=== PATIENT | female | born 1975 | race American Indian/Alaskan Native ===

== ENCOUNTER 2019-06-28 08:35 | Observation (INO) | payer MEDICAID, OTHER ==
[2019-06-24 10:53] LABS: Basophils % (Auto) 0.9 % (0.0-1.8); Eosinophils # (Auto) 0.2 K/mm3 (0.0-0.4); Eosinophils % (Auto) 3.2 % (0.0-4.3); Hematocrit 27.8 % (30.3-42.9); Lymphocytes # (Auto) 2.1 K/mm3 (1.2-5.4); Mean Corpuscular HGB Conc 32 % (30-34); Mean Corpuscular Volume 70 fl (79-97); Monocytes # (Auto) 0.5 K/mm3 (0.0-0.8); Monocytes % (Auto) 8.5 % (0.0-7.3); Platelet Count 539 K/mm3 (140-440); Red Blood Count 3.95 M/mm3 (3.65-5.03); Red Cell Distribution Width 17.4 % (13.2-15.2)
--- NOTE | 2019-06-24 14:46 | Anesthesia Consultation ---
Anesthesia Consult and Med Hx Date of service: 06/28/19 - Airway Anesthetic Teeth Evaluation: Good ROM Head & Neck: Adequate Mental/Hyoid Distance: Adequate Mallampati Class: Class II Intubation Access Assessment: Possibly Difficult (reports occasional difficulty with TMJ; good mouth opening on exam) - Pulmonary Exam CTA: Yes - Cardiac Exam Cardiac Exam: RRR - Pre-Operative Health Status ASA Pre-Surgery Classification: ASA2 Proposed Anesthetic Plan: General Nerve Block: TAP - Pulmonary Hx Smoking: Yes Hx Respiratory Symptoms: No - Cardiovascular System Hx Hypertension: No Hx Heart Attack/AMI: No Hx Angina: Yes (hx right sided chest pain with incomplete cardiology work up) Hx Percutaneous Transluminal Coronary Angioplasty (PTCA): No Hx Cardia Arrhythmia: No Hx Heart Murmur: Yes (As -resolved) - Central Nervous System CVA: No Hx Psychiatric Problems: Yes (anxiety) - Gastrointestinal Hx Gastroesophageal Reflux Disease: No - Endocrine Hx Renal Disease: No Hx Liver Disease: No Hx Insulin Dependent Diabetes: No Hx Non-Insulin Dependent Diabetes: No Hx Thyroid Disease: No - Hematic Hx Anemia: Yes - Other Systems Hx Obesity: Yes - Additional Comments Anesthesia Medical History Comments: PMH smoking, anemia, and fibroids scheduled for myomectomy. Reports history of intermittent chest pain for the last 2 yrs, most recently 2 wks ago. She was previously seen in the ED at [facility] 2yrs ago where acute SD was ruled out. She saw cardiology as outpatient and stress test or TTE was recommended but she never got the procedure done. She has not seen the hotel services sales representative or PCP regarding this issue since. EKG today is NSR without evidence of acute SD and she denies chest pain. Patient instructed to make appt with cardiology for further evaluation of chest pain and that this evaluation must be completed prior to planned surgery. She and family verbalized understanding.
[2019-06-28] MEDS ORDERED: LACTATED RINGERS 1,000 ML IV SCH (09:00)
[2019-06-28] MEDS ORDERED: ceFAZolin/Water 2 GM/20 ML 2 GM/20 ML SYRINGE IV NR (09:00)
--- NOTE | 2019-06-28 09:01 | History and Physical Report ---
History of Present Illness Date of examination: 06/28/19 Chief complaint: Symptomatic uterine fibroids History of present illness: Pt is a 43yo BF LMP 06/20/19 presents for surgical evaluation and treatment of uterine fibroids. She complains of pelvic pain and heavy vaginal bleeding. Pelvic u/s showed an enlarged uterus with several fibroids, and endometrial biopsy was benign. She desires future fertility and thus is scheduled for an Abdominal myomectomy. Past History Past Medical History: heart disease Past Surgical History: BODY HANGER/uterine surgery (Laparoscopic surgery) BODY HANGER History: fibroids Social history: no significant social history, single Medications and Allergies Allergies Allergy/AdvReac Type Severity Reaction Status Date / Time No Known Allergies Allergy Unverified 06/23/19 12:46 Home Medications Medication Instructions Recorded Confirmed Last Taken Type Cyclobenzaprine [Flexeril] 10 mg PO TID 06/28/19 06/28/19 06/28/19 06:00 History FLUoxetine HCL [PROzac] 40 mg PO QDAY 06/28/19 06/28/19 06/27/19 08:00 History Ibuprofen [Motrin] 800 mg PO Q8HR PRN 06/28/19 06/28/19 06/21/19 08:00 History traZODone [Desyrel] 50 mg PO QHS 06/28/19 06/28/19 06/27/19 21:00 History Review of Systems All systems: negative - Vital Signs Vital signs: Vital Signs Temp Pulse Resp BP Pulse Ox 99.4 F 94 H 20 152/90 100 06/24/19 10:25 06/24/19 10:25 06/24/19 10:25 06/24/19 10:25 06/24/19 10:25 Temp Pulse Resp BP Pulse Ox 99.4 F 94 H 20 152/90 100 06/24/19 10:25 06/24/19 10:25 06/24/19 10:25 06/24/19 10:25 06/24/19 10:25 - Physical Exam Breasts: Positive: deferred Cardiovascular: Regular rate Lungs: Positive: Clear to auscultation Abdomen: Positive: normal appearance Genitourinary (Female): Positive: normal external genitalia Uterus: Positive: enlarged Extremities: Positive: normal Results Result Diagrams: 06/24/19 10:30 All other labs normal. Ultrasound: report reviewed Assessment and Plan - Patient Problems (1) Menorrhagia with regular cycle Onset Date: 06/28/19 Current Visit: Yes Status: Acute Plan to address problem: A: Menorrhagia Chronic blood loss anemia Uterine fibroids P: Admit for an Abdominal myomectomy Cell saver (2) Chronic blood loss anemia Onset Date: 06/28/19 Current Visit: Yes Status: Acute (3) Fibroids, intramural Onset Date: 06/28/19 Current Visit: Yes Status: Acute (4) Fibroids, submucosal Onset Date: 06/28/19 Current Visit: Yes Status: Acute (5) Fibroids, subserous Onset Date: 06/28/19 Current Visit: Yes Status: Acute
[2019-06-28] MEDS ORDERED: MIDAZOLAM 2 MG/2 ML INJ IV NR (09:10)
[2019-06-28] MEDS ORDERED: PROPOFOL 200 MG/20 ML VIAL IV ONE (09:15)
[2019-06-28] MEDS ORDERED: ROCURONIUM 50 MG/5 ML INJ IV ONE (09:15)
[2019-06-28] MEDS ORDERED: LIDOCAINE MPF (2%) 20 MG/1 ML VIAL 5 ML ONE (09:15)
[2019-06-28] MEDS ORDERED: fentaNYL 100 MCG/2 ML INJ ONE ×2 (09:15→09:31)
[2019-06-28] MEDS ORDERED: BUPIVACAINE-EPINEPHRINE/PF 0.5%-1:200,000 (30 ML) VIAL INFILTRATI ONE (09:21)
[2019-06-28] MEDS ORDERED: BUPIVACAINE-EPINEPHRINE/PF 0.5%-1:200,000 (10 ML) VIAL INFILTRATI ONE (09:22)
[2019-06-28] MEDS ORDERED: dexAMETHasone 4 MG/ML VIAL ONE (09:22)
[2019-06-28] MEDS ORDERED: SODIUM CHLORIDE 0.9% 100 ML ONE (09:30)
[2019-06-28] MEDS ORDERED: VASOPRESSIN 20 UNIT/1 ML INJ ONE (09:30)
[2019-06-28] MEDS ORDERED: CITRIC ACID-SOD CITRATE 500 ML IV ONE (09:34)
[2019-06-28] MEDS ORDERED: METOCLOPRAMIDE 10 MG/2 ML INJ ONE (09:43)
[2019-06-28] MEDS ORDERED: dexAMETHasone 20 MG/5 ML VIAL ONE (09:43)
[2019-06-28] MEDS ORDERED: KETOROLAC 30 MG/1 ML INJ ONE (09:43)
[2019-06-28] MEDS ORDERED: HYDROmorphone 1 MG/1 ML INJ ONE (09:43)
[2019-06-28] MEDS ORDERED: ONDANSETRON 4 MG/2 ML INJ ONE (09:43)
[2019-06-28] MEDS ORDERED: GLYCOPYRROLATE 0.4 MG/2 ML INJ ONE ×2 (11:00→11:09)
[2019-06-28] MEDS ORDERED: NEOSTIGMINE 10MG/10 ML INJ MDV ONE (11:00)
[2019-06-28] MEDS ORDERED: LACTATED RINGERS 1,000 ML ONE (11:06)
[2019-06-28] MEDS ORDERED: VASOPRESSIN 20 UNIT/1 ML INJ IM ONE (11:15)
[2019-06-28] MEDS ORDERED: SODIUM CHLORIDE 0.9% IRR 1,500 ML BOTTLE IR ONE (11:16)
[2019-06-28] MEDS ORDERED: CITRIC ACID-SOD CITRATE SOLN 500 ML IV SOLN IV ONE (11:16)
[2019-06-28] MEDS ORDERED: SODIUM CHLORIDE 0.9% 100 ML IVPB IV ONE (11:16)
[2019-06-28] MEDS ORDERED: ONDANSETRON 4 MG/2 ML INJ IV PRN ×2 (11:35→11:55)
[2019-06-28] MEDS ORDERED: oxyCODONE /ACETAMINOPHEN 5-325MG TAB PO PRN (11:35)
[2019-06-28] MEDS ORDERED: ACETAMINOPHEN 325 MG TAB PO PRN (11:35)
--- NOTE | 2019-06-28 11:35 | Operative Report ---
Operative Report Operative Report: Date of procedure: 06/29/2019 Pre-operative diagnosis: 1. Symptomatic uterine fibroids 2. Menorrhagia 3. Anemia Post-operative diagnosis: Same Procedure name(s): 1. Abdominal myomectomy Surgeon: Arjun Adrian MD General Magistrate: Cristine Diaz CSA Anesthesia: TYE block followed by Gen. endotracheal intubation EBL: 70 mL's Findings: A 10 -12 week size multimyomatous uterus with normal fallopian tubes and ovaries bilaterally. Procedure: After the patient was correctly identified, she was prepped and draped in usual sterile fashion and placed in the lithotomy position. First the skin knife used to make a transverse skin incision, which was nicked in the midline and extended laterally using the Bovie cautery. The rectus muscles were dissected off the rectus fascia both superiorly and inferiorly, the rectus bellies in the midline and the peritoneum was entered under direct visualization. Exploration of the pelvic organs found the uterus to be enlarged with multiple fibroids, the largest located in the posterior uterine wall. The left and right fallopian tubes were normal, and the ovaries were normal bilaterally. Next the bowels were packed back, and the posterior uterine serosa was infiltrated using Pitressin solution, and a posterior incision was made through which 5 moderate sized fibroids (3-4cms) were removed and sent to pathology. The endometrial cavity was entered, and thus she will need a section for delivery should she get . After all the fibroids are removed, the myometrium was re-approximated using 2-0 Monocryl suture in 2 layers, the second layer imbricating the first. Copious amounts of irrigation w as then performed, and excellent hemostasis was assured. The Tisseel Sealant was sprayed across the serosal layer. The uterus was returned to his normal anatomical position, and the rectus muscles and peritoneum was re-approximated using several sutures of interrupted 0 Vicryl suture. The fascia was re- approximated using 0 Vicryl suture in a running locking fashion. The subcutaneous layer was made hemostatic using Bovie cautery and re-approximated using 2-0 Monocryl suture and the skin edges re-approximated using 4-0 Vicryl suture in a sub-cuticular fashion. The patient tolerated the procedure well and was transferred to recovery room in stable condition.
[2019-06-28] MEDS ORDERED: MEPERIDINE 25 MG/1 ML INJ ONE (11:55)
[2019-06-28] MEDS ORDERED: MEPERIDINE 25 MG/1 ML INJ IV PRN (11:55)
[2019-06-28] MEDS ORDERED: D5W/LACTATED RINGERS 1,000 ML IV SCH (12:00)
[2019-06-28] MEDS: HYDROmorphone 1 MG/1 ML INJ IV PRN ×2 (12:08→12:19)
[2019-06-28] MEDS: ceFAZolin/NS 1 GM/50 ML 1 GM/50 ML BAG IV SCH (15:22)
[2019-06-28] MEDS: KETOROLAC 30 MG/1 ML INJ IV SCH (17:35)
[2019-06-28] MEDS: DOCUSATE SODIUM 100 MG CAP PO SCH (22:09)
[2019-06-28] MEDS: MORPHINE 4 MG/1 ML INJ IV PRN (22:10)
[2019-06-29] MEDS: ceFAZolin/NS 1 GM/50 ML 1 GM/50 ML BAG IV SCH (00:26)
[2019-06-29] MEDS: KETOROLAC 30 MG/1 ML INJ IV SCH ×3 (02:18→16:37)
[2019-06-29] MEDS: MORPHINE 4 MG/1 ML INJ IV PRN (06:24)
[2019-06-29 08:22] LABS: Hematocrit 27.9 % (30.3-42.9); Hemoglobin 8.8 gm/dl (10.1-14.3)
--- NOTE | 2019-06-29 08:45 | Progress Note ---
Assessment and Plan - Patient Problems (1) Menorrhagia with regular cycle Onset Date: 06/28/19 Current Visit: Yes Status: Resolved (2) Chronic blood loss anemia Onset Date: 06/28/19 Current Visit: Yes Status: Chronic (3) Fibroids, intramural Onset Date: 06/28/19 Current Visit: Yes Status: Resolved (4) Fibroids, submucosal Onset Date: 06/28/19 Current Visit: Yes Status: Resolved (5) Fibroids, subserous Onset Date: 06/28/19 Current Visit: Yes Status: Resolved (6) Status post myomectomy Onset Date: 06/29/19 Current Visit: Yes Status: Resolved Plan to address problem: A: S/P Abdominal myomectomy - POD #1 Doing well Asymptomatic anemia - stable P: Continue RPOC Encourage ambulation Anticipate discharge in 24 hrs Subjective - Subjective Date of service: 06/29/19 Principal diagnosis: s/p Abdominal myomectomy - POD #1 Interval history: Pt is s/p an Abdominal myomectomy, and feeling well. She is tolerating a liquid diet without nausea or vomiting. Patient reports: appetite normal, voiding normally, pain well controlled, ambulating normally, no dizzy ambulation, no flatus, no nauseated Objective - Vital Signs Latest vital signs: Vital Signs Temp Pulse Resp BP BP Pulse Ox 06/29/19 06:24 18 06/29/19 04:00 98.7 F 67 18 121/73 06/29/19 02:18 18 06/29/19 00:00 98.7 F 66 16 122/73 06/28/19 22:10 18 06/28/19 21:00 98.6 F 76 18 146/83 06/28/19 15:56 98.8 F 88 18 154/85 98 06/28/19 14:30 98.6 F 83 20 144/81 97 06/28/19 12:30 97.9 F 80 18 146/73 100 06/28/19 12:15 78 20 145/76 100 06/28/19 12:00 79 20 154/72 100 06/28/19 11:55 82 20 155/71 100 06/28/19 11:50 94 H 20 134/79 100 06/28/19 11:44 97.5 F L 93 H 19 151/81 100 06/28/19 09:57 82 21 143/79 100 06/28/19 09:52 85 16 144/79 100 06/28/19 09:47 80 19 145/77 100 06/28/19 09:42 83 20 151/90 100 06/28/19 09:37 86 15 151/88 100 06/28/19 09:32 80 22 154/71 100 06/28/19 08:50 98.8 F 81 18 140/78 100 06/28/19 08:45 98.8 F 81 18 140/78 100 Intake and Output 06/28/19 06/29/19 06/29/19 22:59 06:59 14:59 Intake Total 350 600 Output Total 2100 1350 Balance -1750 -750 Intake: IV 50 ANCEF/NS 1 GM/50 ML 1 gm 50 In 50 ml @ 100 mls/hr IV Q8H PENDING SALE TO [facility] Rx#:[id number] Intake, Free Water 300 600 Output: Urine 2100 1350 Indwelling Catheter 1500 1350 Uretheral (Rae) 600 Other: Total, Output Amount 600 150 Voiding Method Indwelling Catheter - Exam Breasts: Present: deferred Abdomen: Present: normal appearance, soft Uterus: Present: normal Extremities: Present: normal Incision: Present: normal, dry, intact - Labs Labs: Abnormal lab results 06/29/19 Range/Units 08:07 Hgb 8.8 L (10.1-14.3) gm/dl Hct 27.9 L (30.3-42.9) % Laboratory Tests 06/24/19 06/24/19 06/28/19 10:30 10:30 09:10 WBC 5.4 RBC 3.95 Hgb 9.0 L Hct 27.8 L MCV 70 L MCH 23 L MCHC 32 RDW 17.4 H Plt Count 539 H Lymph % (Auto) 39.0 H [place] % (Auto) 8.5 H Eos % (Auto) 3.2 Baso % (Auto) 0.9 Lymph # 2.1 Marin # 0.5 Eos # 0.2 Baso # 0.0 Seg Neutrophils % 48.4 Seg Neutrophils # 2.6 HCG, Qual Negative Blood Type O POSITIVE Antibody Screen Negative 06/29/19 08:07 WBC RBC Hgb 8.8 L Hct 27.9 L MCV MCH MCHC RDW Plt Count Lymph % (Auto) Marin % (Auto) Eos % (Auto) Baso % (Auto) Lymph # Marin # Eos # Baso # Seg Neutrophils % Seg Neutrophils # HCG, Qual Blood Type Antibody Screen
[2019-06-29] MEDS: DOCUSATE SODIUM 100 MG CAP PO SCH ×2 (10:01→22:01)
[2019-06-29] MEDS: MAGNESIUM HYDROXIDE (MOM) ORAL LIQD UDC PO PRN ×2 (14:45→22:00)
[2019-06-29] MEDS: HYDROcodone/ACETAMINOPHEN 5-325 MG TAB PO PRN (22:01)
[2019-06-30] MEDS: HYDROcodone/ACETAMINOPHEN 5-325 MG TAB PO PRN ×2 (06:26→10:03)
[2019-06-30] MEDS: KETOROLAC 30 MG/1 ML INJ IV SCH (06:31)
--- NOTE | 2019-06-30 09:58 | Progress Note ---
Assessment and Plan - Patient Problems (1) Menorrhagia with regular cycle Onset Date: 06/28/19 Current Visit: Yes Status: Resolved (2) Chronic blood loss anemia Onset Date: 06/28/19 Current Visit: Yes Status: Chronic (3) Fibroids, intramural Onset Date: 06/28/19 Current Visit: Yes Status: Resolved (4) Fibroids, submucosal Onset Date: 06/28/19 Current Visit: Yes Status: Resolved (5) Fibroids, subserous Onset Date: 06/28/19 Current Visit: Yes Status: Resolved (6) Status post myomectomy Onset Date: 06/29/19 Current Visit: Yes Status: Resolved Plan to address problem: A: S/P Abdominal myomectomy - POD #2 Doing well Asymptomatic anemia - stable P: May go home today. Subjective - Subjective Date of service: 06/30/19 Principal diagnosis: s/p Abdominal myomectomy - POD #2 Interval history: Pt is feeling well s/p an Abdominal myomectomy. She is tolerating a reg diet without nausea or vomiting, ambulating and voiding without difficulty. Patient reports: appetite normal, voiding normally, pain well controlled, flatus, ambulating normally, no dizzy ambulation, no nauseated Objective - Vital Signs Latest vital signs: Vital Signs Temp Pulse Resp BP BP Pulse Ox 06/30/19 07:44 98.5 F 85 18 117/54 98 06/30/19 04:52 98.3 F 82 18 111/62 95 06/30/19 01:25 98.5 F 89 18 143/80 95 06/29/19 20:06 99.0 F 85 18 103/60 95 06/29/19 16:42 98.7 F 79 18 150/76 06/29/19 13:15 98.4 F 107 H 18 131/84 Intake and Output 06/29/19 06/30/19 06/30/19 22:59 06:59 14:59 Intake Total 720 Balance 720 Intake: Oral 480 Intake, Free Water 240 Other: Total, Intake Amount 480 Voiding Method Toilet # Voids Void 1 - Exam Breasts: Present: deferred Abdomen: Present: normal appearance, soft Uterus: Present: normal Extremities: Present: normal Incision: Present: normal, dry, intact
[2019-06-30] MEDS: DOCUSATE SODIUM 100 MG CAP PO SCH (10:02)
--- NOTE | 2019-06-30 10:03 | Discharge Summary ---
Providers - Providers Date of Admission: 06/28/19 11:36 Date of discharge: 06/30/19 Attending physician: ESTHER HUI [facility] Reason for admission: other (Symptomatic uterine fibroids; Menorrhagia) Procedure: other (Abdominal myomectomy) Episiotomy: none Laceration: none Incision: normal, dry, intact Other procedures: none complications: none Discharge diagnosis: other (s/p Abdominal myomectomy) Hospital course: Pt is a 43yo BF LMP 06/20/19 who presented for surgical evaluation and treatment of uterine fibroids. She complained of pelvic pain and heavy vaginal bleeding. Pelvic u/s showed an enlarged uterus with several fibroids, and endometrial biopsy was benign. She underwent an uncomplicated Abdominal myomectomy, and by POD #2 she was tolerating a reg diet without nausea or vomiting, ambulating and voiding without difficulty. She was therefore discharged to home on POD #2 in stable condition. Condition at discharge: Good Disposition: DC-01 TO HOME OR SELFCARE - Discharge Diagnoses (1) Menorrhagia with regular cycle Status: Resolved (2) Chronic blood loss anemia Status: Chronic (3) Fibroids, intramural Status: Resolved (4) Fibroids, submucosal Status: Resolved (5) Fibroids, subserous Status: Resolved (6) Status post myomectomy Status: Resolved Plan - Discharge Medications Prescriptions: Ibuprofen [Motrin] 800 mg PO Q8HR PRN #30 tablet PRN Reason: Pain, Mild (1-3) HYDROcodone/APAP 5-325 [[place] 5-325 mg TAB] 1 each PO Q6HR PRN #30 tablet PRN Reason: Pain, Moderate (4-6) - Provider Discharge Summary Activity: routine, no sex for 6 weeks, no heavy lifting 4 weeks, no strenuous exercise Diet: routine Instructions: routine Additional instructions: [] Smoking cessation referral if applicable(refer to patient education folder for contact #) [] Refer to [facility] Booklet Call your doctor immediately for: * Fever > 100.5 * Heavy vaginal bleeding ( >1 pad per hour) * Severe persistent headache * Shortness of breath * Reddened, hot, painful area to leg or breast * Drainage or odor from incision. * Keep incision clean and dry at all times and follow doctor's instructions regarding bathing/showering - Follow up plan Follow up: ESTHER HUI MD [Staff Physician] - 14 Days [place] [facility] BAHENA MD [Primary Care Provider] - 14 Days
[2019-06-30 11:16] VITALS: BP 134/80
== END 2019-06-30 11:30 | disposition home or self-care (01) ==
LOC: OR 08:35 → EDSTATUS 09:15 → OB 11:36 → INTOOBSV 11:36
PROVIDERS: ADMIT Obstetrics & Gynecology; ATTEND Obstetrics & Gynecology
DX: N92.0 Excessive and frequent menstruation with regular cycle (principal); D50.0 Iron deficiency anemia secondary to blood loss (chronic); D25.1 Intramural leiomyoma of uterus; D25.0 Submucous leiomyoma of uterus; D25.2 Subserosal leiomyoma of uterus; Z79.899 Other long term (current) drug therapy; Z90.10 Acquired absence of unspecified breast and nipple
CPT/HCPCS: 36415; 58140; 64450; 84703; 85014; 85018; 85025; 86850; 86900; 86901; 88305; 93005; 93010; 96365; 96366; 96372; 96375; 96376; C9250; G0378; J0690; J1100; J1170; J1885; J2175; J2250; J2270; J2405; J2704; J2710; J2765; J3010; J7120; J7121

== ENCOUNTER 2020-01-27 10:23 | Emergency (ER) | payer MEDICAID ==
--- NOTE | 2020-01-27 11:06 | Emergency Department Report ---
ED General Adult HPI - General Chief complaint: Arrhythmia/Palpitations Stated complaint: SVT/ROSMERY Time Seen by Provider: 01/27/20 10:41 Source: patient, EMS Mode of arrival: Stretcher Limitations: No Limitations - History of Present Illness Initial comments: The patient presents to the emergency department via EMS for SVT. The patient states this morning she woke up and felt her heart beating fast and also felt lightheaded. Patient states she got herself dressed and went to see her physician at [facility]. Upon arriving at her doctor's office it was noticed that her heart rate was elevated and EMS was called. Per EMS arrival the patient was SVT they did a vagal maneuver at 6 mg of adenosine and her heart rate decreased to 90. Patient states this has happened to her in the past but she never seeked medical attention. Patient denies any chest pain or shortness of breath currently. -: Sudden Severity scale (0 -10): 0 Consistency: now resolved Improves with: medication Worsens with: none Associated Symptoms: denies other symptoms Treatments Prior to Arrival: none - Related Data Home Medications Medication Instructions Recorded Confirmed Last Taken Cyclobenzaprine [Flexeril] 10 mg PO TID 06/28/19 06/28/19 06/28/19 06:00 FLUoxetine HCL [PROzac] 40 mg PO QDAY 06/28/19 06/28/19 06/27/19 08:00 Ibuprofen [Motrin] 800 mg PO Q8HR PRN 06/28/19 06/28/19 06/21/19 08:00 traZODone [Desyrel] 50 mg PO QHS 06/28/19 06/28/19 06/27/19 21:00 Previous Rx's Medication Instructions Recorded Last Taken Type HYDROcodone/APAP 5-325 [[place] 1 each PO Q6HR PRN #30 tablet 06/30/19 Unknown Rx 5-325 mg TAB] Ibuprofen [Motrin] 800 mg PO Q8HR PRN #30 tablet 06/30/19 Unknown Rx Metoprolol [Lopressor TAB] 25 mg PO BID #60 tablet 01/27/20 Unknown Rx Allergies Allergy/AdvReac Type Severity Reaction Status Date / Time No Known Allergies Allergy Unverified 06/23/19 12:46 ED Review of Systems ROS: Stated complaint: SVT/ROSMERY Other details as noted in HPI Comment: All other systems reviewed and negative Constitutional: denies: chills, fever Eyes: denies: eye pain, eye discharge, vision change ENT: denies: ear pain, throat pain Respiratory: denies: cough, shortness of breath, wheezing Cardiovascular: palpitations. denies: chest pain Endocrine: no symptoms reported Gastrointestinal: denies: abdominal pain, nausea, diarrhea Genitourinary: denies: urgency, dysuria, discharge Musculoskeletal: denies: back pain, joint swelling, arthralgia Skin: denies: rash, lesions Neurological: denies: headache, weakness, paresthesias Psychiatric: denies: anxiety, depression Hematological/Lymphatic: denies: easy bleeding, easy bruising ED Past Medical Hx - Past Medical History Previous Medical History?: Yes Hx Hypertension: Yes Hx Heart Attack/AMI: No Hx Liver Disease: No Hx Renal Disease: No Hx Headaches / Migraines: Yes (Migraines) - Surgical History Past Surgical History?: Yes - Social History Smoking Status: Never Smoker Substance Use Type: None - Medications Home Medications: Home Medications Medication Instructions Recorded Confirmed Last Taken Type Cyclobenzaprine [Flexeril] 10 mg PO TID 06/28/19 06/28/19 06/28/19 06:00 History FLUoxetine HCL [PROzac] 40 mg PO QDAY 06/28/19 06/28/19 06/27/19 08:00 History Ibuprofen [Motrin] 800 mg PO Q8HR PRN 06/28/19 06/28/19 06/21/19 08:00 History traZODone [Desyrel] 50 mg PO QHS 06/28/19 06/28/19 06/27/19 21:00 History HYDROcodone/APAP 5-325 [[place] 1 each PO Q6HR PRN #30 tablet 06/30/19 Unknown Rx 5-325 mg TAB] Ibuprofen [Motrin] 800 mg PO Q8HR PRN #30 tablet 06/30/19 Unknown Rx Metoprolol [Lopressor TAB] 25 mg PO BID #60 tablet 01/27/20 Unknown Rx ED Physical Exam - General Limitations: No Limitations General appearance: alert, in no apparent distress - Head Head exam: Present: atraumatic, normocephalic - Eye Eye exam: Present: normal appearance, PERRL, EOMI - ENT ENT exam: Present: mucous membranes moist - Neck Neck exam: Present: normal inspection - Respiratory Respiratory exam: Present: normal lung sounds bilaterally. Absent: respiratory distress - Cardiovascular Cardiovascular Exam: Present: regular rate, normal rhythm. Absent: systolic murmur, diastolic murmur, rubs, gallop - GI/Abdominal GI/Abdominal exam: Present: soft, normal bowel sounds. Absent: distended, tenderness - Extremities Exam Extremities exam: Present: normal inspection - Back Exam Back exam: Present: normal inspection - Neurological Exam Neurological exam: Present: alert, oriented X3, CN II-XII intact. Absent: motor sensory deficit - Psychiatric Psychiatric exam: Present: normal affect, normal mood - Skin Skin exam: Present: warm, dry, intact, normal color. Absent: rash ED Course Vital Signs 01/27/20 01/27/20 10:36 10:57 Temperature 98.7 F Pulse Rate 98 H Respiratory 18 18 Rate Blood Pressure 134/84 O2 Sat by Pulse 100 100 Oximetry ED Medical Decision Making - Lab Data Result diagrams: 01/27/20 11:18 01/27/20 11:18 Lab Results 01/27/20 01/27/20 01/27/20 Range/Units 11:18 11:18 11:18 WBC 7.1 (4.5-11.0) K/mm3 RBC 4.16 (3.65-5.03) M/mm3 Hgb 9.1 L (10.1-14.3) gm/dl Hct 28.3 L (30.3-42.9) % MCV 68 L (79-97) fl MCH 22 L (28-32) pg MCHC 32 (30-34) % RDW 18.8 H (13.2-15.2) % Plt Count 606 H (140-440) K/mm3 Lymph % (Auto) 38.8 H (13.4-35.0) % [place] % (Auto) 6.9 (0.0-7.3) % Eos % (Auto) 0.3 (0.0-4.3) % Baso % (Auto) 1.8 (0.0-1.8) % Lymph # 2.7 (1.2-5.4) K/mm3 [place]oard # 0.5 (0.0-0.8) K/mm3 Eos # 0.0 (0.0-0.4) K/mm3 Baso # 0.1 (0.0-0.1) K/mm3 Seg Neutrophils % 52.2 (40.0-70.0) % Seg Neutrophils # 3.7 (1.8-7.7) K/mm3 Sodium 139 (137-145) mmol/L Potassium 3.9 (3.6-5.0) mmol/L Chloride 106.4 (98-107) mmol/L Carbon Dioxide 21 L (22-30) mmol/L Anion Gap 16 mmol/L BUN 11 (7-17) mg/dL Creatinine 0.6 (0.6-1.2) mg/dL Estimated GFR > 60 ml/min BUN/Creatinine Ratio 18 % Glucose 72 (65-100) mg/dL Calcium 9.0 (8.4-10.2) mg/dL Phosphorus 2.90 (2.5-4.5) mg/dL Magnesium 2.30 (1.7-2.3) mg/dL Total Bilirubin < 0.20 (0.1-1.2) mg/dL AST 13 (5-40) units/L ALT 11 (7-56) units/L Alkaline Phosphatase 70 (35-129) units/L NT-Pro-B Natriuret Pep (0-450) pg/mL Total Protein 7.7 (6.3-8.2) g/dL Albumin 3.7 L (3.9-5) g/dL Albumin/Globulin Ratio 0.9 % TSH (0.270-4.200) mlU/mL Thyroxine (T4) 8.5 (4.0-12.0) ug/dL 01/27/20 01/27/20 Range/Units 11:18 11:18 WBC (4.5-11.0) K/mm3 RBC (3.65-5.03) M/mm3 Hgb (10.1-14.3) gm/dl Hct (30.3-42.9) % MCV (79-97) fl MCH (28-32) pg MCHC (30-34) % RDW (13.2-15.2) % Plt Count (140-440) K/mm3 Lymph % (Auto) (13.4-35.0) % [place] % (Auto) (0.0-7.3) % Eos % (Auto) (0.0-4.3) % Baso % (Auto) (0.0-1.8) % Lymph # (1.2-5.4) K/mm3 Foard # (0.0-0.8) K/mm3 Eos # (0.0-0.4) K/mm3 Baso # (0.0-0.1) K/mm3 Seg Neutrophils % (40.0-70.0) % Seg Neutrophils # (1.8-7.7) K/mm3 Sodium (137-145) mmol/L Potassium (3.6-5.0) mmol/L Chloride (98-107) mmol/L Carbon Dioxide (22-30) mmol/L Anion Gap mmol/L BUN (7-17) mg/dL Creatinine (0.6-1.2) mg/dL Estimated GFR ml/min BUN/Creatinine Ratio % Glucose (65-100) mg/dL Calcium (8.4-10.2) mg/dL Phosphorus (2.5-4.5) mg/dL Magnesium (1.7-2.3) mg/dL Total Bilirubin (0.1-1.2) mg/dL AST (5-40) units/L ALT (7-56) units/L Alkaline Phosphatase (35-129) units/L NT-Pro-B Natriuret Pep 2422 H (0-450) pg/mL Total Protein (6.3-8.2) g/dL Albumin (3.9-5) g/dL Albumin/Globulin Ratio % TSH 1.410 (0.270-4.200) mlU/mL Thyroxine (T4) (4.0-12.0) ug/dL - EKG Data -: EKG Interpreted by Nd EKG shows normal: sinus rhythm Rate: normal - Radiology Data Radiology results: report reviewed - Medical Decision Making Discussed patient with cardiology and is okay for the patient to go home on 25 mg of metoprolol twice daily with follow-up within the next 3 to 5 days Critical care attestation.: If time is entered above; I have spent that time in minutes in the direct care of this critically ill patient, excluding procedure time. ED Disposition Clinical Impression: Arrhythmia Disposition: DC-01 TO HOME OR SELFCARE Is pt being admited?: No Does the pt Need Aspirin: No Condition: Stable Instructions: Supraventricular Tachycardia (ED), Palpitations (ED) Additional Instructions: return if worse Prescriptions: Metoprolol [Lopressor TAB] 25 mg PO BID #60 tablet Referrals: PRIMARY CARE, [Primary Care Provider] - 3-5 Days DAVE LUTHER MD [Staff Physician] - 3-5 Days Time of Disposition: 14:01
--- NOTE | 2020-01-27 11:34 | XRay Report ---
CHEST 1 VIEW 01/27/2020 11:08 AM INDICATION / CLINICAL INFORMATION: tachycardia. COMPARISON: None available. FINDINGS: SUPPORT DEVICES: None. HEART / MEDIASTINUM: No significant abnormality. LUNGS / PLEURA: No significant pulmonary or pleural abnormality. No pneumothorax. ADDITIONAL FINDINGS: No significant additional findings. IMPRESSION: 1. No acute findings. Signer Name: Henrique Bustos MD Signed: 01/27/2020 11:29 AM Workstation Name: [id number]
[2020-01-27] MEDS ORDERED: HYDROcodone/ACETAMINOPHEN 5-325 MG TAB PO ONE (12:03)
[2020-01-27] MEDS ORDERED: ONDANSETRON 4 MG ODT TAB PO ONE (12:03)
[2020-01-27 12:08] LABS: Alanine Aminotransferase 11 units/L (7-56); Albumin 3.7 g/dL (3.9-5); BUN/Creatinine Ratio 18; Blood Urea Nitrogen 11 mg/dL (7-17); Hemolysis Index 0
[2020-01-27 12:27] LABS: Basophils # (Auto) 0.1 K/mm3 (0.0-0.1); Basophils % (Auto) 1.8 % (0.0-1.8); Eosinophils % (Auto) 0.3 % (0.0-4.3); Hematocrit 28.3 % (30.3-42.9); Hemoglobin 9.1 gm/dl (10.1-14.3); Lymphocytes # (Auto) 2.7 K/mm3 (1.2-5.4); Lymphocytes % (Auto) 38.8 % (13.4-35.0); Mean Corpuscular HGB Conc 32 % (30-34); Monocytes # (Auto) 0.5 K/mm3 (0.0-0.8); Monocytes % (Auto) 6.9 % (0.0-7.3); Platelet Count 606 K/mm3 (140-440); Red Blood Count 4.16 M/mm3 (3.65-5.03); Red Cell Distribution Width 18.8 % (13.2-15.2)
[2020-01-27 12:29] LABS: Mean Corpuscular Volume 68 fl (79-97)
[2020-01-27 14:17] LABS: Bilirubin,Urine NEG (Negative); Blood,Urine LG (Negative); Color,Urine Yellow (Yellow); Mucus,Urine FEW /HPF; Protein,Urine <15 mg/dL mg/dL (Negative); Urobilinogen,Urine < 2.0 mg/dL (<2.0)
[2020-01-27 14:24] LABS: Amphetamine Screen,Urine PRESUMPTIVE NEGATIVE; Benzodiazepines Screen,Urine PRESUMPTIVE NEGATIVE; Cannabinoid Screen,Urine PRESUMPTIVE NEGATIVE; Cocaine Screen,Urine PRESUMPTIVE NEGATIVE; Methadone Screen,Urine PRESUMPTIVE NEGATIVE; Opiate Screen,Urine PRESUMPTIVE NEGATIVE
[2020-01-27 15:13] VITALS: BP 118/61
== END 2020-01-27 14:10 | disposition home or self-care (01) ==
LOC: ED 10:23
DX: I49.9 Cardiac arrhythmia, unspecified (principal); I10 Essential (primary) hypertension; G43.909 Migraine, unspecified, not intractable, without status migrainosus; Z79.899 Other long term (current) drug therapy
CPT/HCPCS: 36415; 71045; 80053; 80307; 81001; 83735; 83880; 84100; 84436; 84443; 85025; 87086; 93005; Q0162

== ENCOUNTER 2020-02-05 20:57 | Observation (INO) | payer MEDICAID ==
[2020-02-05] MEDS ORDERED: ASPIRIN 325 MG TAB PO ONE (21:06)
[2020-02-05 21:35] LABS: Basophils # (Auto) 0.1 K/mm3 (0.0-0.1); Basophils % (Auto) 1.1 % (0.0-1.8); Eosinophils # (Auto) 0.2 K/mm3 (0.0-0.4); Eosinophils % (Auto) 2.1 % (0.0-4.3); Hematocrit 31.5 % (30.3-42.9); Hemoglobin 10.2 gm/dl (10.1-14.3); Lymphocytes # (Auto) 3.2 K/mm3 (1.2-5.4); Mean Corpuscular HGB Conc 32 % (30-34); Monocytes # (Auto) 0.6 K/mm3 (0.0-0.8); Monocytes % (Auto) 8.3 % (0.0-7.3); Platelet Count 622 K/mm3 (140-440); Red Blood Count 4.55 M/mm3 (3.65-5.03); Red Cell Distribution Width 18.4 % (13.2-15.2)
[2020-02-05 21:38] LABS: Mean Corpuscular Volume 69 fl (79-97)
--- NOTE | 2020-02-05 21:39 | XRay Report ---
CHEST 1 VIEW 02/05/2020 9:28 PM INDICATION / CLINICAL INFORMATION: Chest Pain. COMPARISON: 01/27/2020 FINDINGS: SUPPORT DEVICES: None. HEART / MEDIASTINUM: No significant abnormality. LUNGS / PLEURA: No significant pulmonary or pleural abnormality. No pneumothorax. ADDITIONAL FINDINGS: No significant additional findings. IMPRESSION: 1. No acute findings. Signer Name: Ritchie Dale MD Signed: 02/05/2020 9:34 PM Workstation Name: [id number]
--- NOTE | 2020-02-05 21:54 | Emergency Department Report ---
HPI - General Chief Complaint: Chest Pain Time Seen by Provider: 02/05/20 21:40 - HPI HPI: Room 25 The patient is a 44-year-old female present with chief complaint of chest pain. Patient states this evening at 17: 00 she developed pain in her left chest to feel as though her chest is "caving in." Patient states the pain worsens whenever she lies supine. Patient straight describes the pain is sharp and intermittent in nature. Patient admits to shortness of breath associated with her pain but denies nausea/vomiting or diaphoresis. Patient denies fever, cough or known contact with COVID positive patients. Patient denies any recent flights or long car trips. 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 Patient states she's never had a stress test or cardiac catheterization ED Past Medical Hx - Past Medical History Previous Medical History?: Yes Hx Hypertension: Yes Hx Headaches / Migraines: Yes (Migraines) - Surgical History Past Surgical History?: Yes Additional Surgical History: Fibroid Surgery - Family History Family history: no significant - Social History Smoking Status: Former Smoker (None x3-5 years) Substance Use Type: None (Denies illicit drug use) - Medications Home Medications: Home Medications Medication Instructions Recorded Confirmed Last Taken Type Cyclobenzaprine [Flexeril] 10 mg PO TID 06/28/19 06/28/19 06/28/19 06:00 History FLUoxetine HCL [PROzac] 40 mg PO QDAY 06/28/19 06/28/19 06/27/19 08:00 History Ibuprofen [Motrin] 800 mg PO Q8HR PRN 06/28/19 06/28/19 06/21/19 08:00 History traZODone [Desyrel] 50 mg PO QHS 06/28/19 06/28/19 06/27/19 21:00 History HYDROcodone/APAP 5-325 [[place] 1 each PO Q6HR PRN #30 tablet 06/30/19 Unknown Rx 5-325 mg TAB] Ibuprofen [Motrin] 800 mg PO Q8HR PRN #30 tablet 06/30/19 Unknown Rx Metoprolol [Lopressor TAB] 25 mg PO BID #60 tablet 01/27/20 Unknown Rx ED Review of Systems ROS: Stated complaint: CHEST PAIN Other details as noted in HPI Constitutional: denies: diaphoresis Respiratory: shortness of breath Cardiovascular: chest pain Endocrine: no symptoms reported Gastrointestinal: denies: nausea, vomiting Neurological: headache Physical Exam - Physical Exam Vital Signs: Vital Signs 02/05/20 21:26 Temperature 98.0 F Pulse Rate 98 H Respiratory 20 Rate Blood Pressure 122/73 O2 Sat by Pulse 96 Oximetry Physical Exam: GENERAL: The patient is well-developed well-nourished female lying on stretcher occasionally appearing to be in mild discomfort. [] HEENT: Normocephalic. Atraumatic. Extraocular motions are intact. Patient has moist mucous membranes. NECK: Supple. Trachea midline CHEST/LUNGS: Clear to auscultation. There is no respiratory distress noted. HEART/CARDIOVASCULAR: Regular. There is no tachycardia. There is no gallop rub or murmur. ABDOMEN: Abdomen is soft, nontender. Patient has normal bowel sounds. There is no abdominal distention. SKIN: There is no rash. There is no edema. There is no diaphoresis. NEURO: The patient is awake, alert, and oriented. The patient is cooperative. The patient has normal speech MUSCULOSKELETAL: There is no evidence of acute injury. ED Course Vital Signs 02/05/20 21:26 Temperature 98.0 F Pulse Rate 98 H Respiratory 20 Rate Blood Pressure 122/73 O2 Sat by Pulse 96 Oximetry ED Medical Decision Making - Lab Data Result diagrams: 02/05/20 21:19 02/05/20 21:19 Laboratory Tests 02/05/20 02/05/20 21:19 21:19 WBC 7.5 RBC 4.55 Hgb 10.2 Hct 31.5 MCV 69 L MCH 22 L MCHC 32 RDW 18.4 H Plt Count 622 H Lymph % (Auto) 43.0 H [place] % (Auto) 8.3 H Eos % (Auto) 2.1 Baso % (Auto) 1.1 Lymph # 3.2 [place] # 0.6 Eos # 0.2 Baso # 0.1 Seg Neutrophils % 45.5 Seg Neutrophils # 3.4 Sodium 139 Potassium 3.8 Chloride 103.1 Carbon Dioxide 19 L Anion Gap 21 BUN 21 H Creatinine 0.7 Estimated GFR > 60 BUN/Creatinine Ratio 30 Glucose 111 H Calcium 8.6 Troponin T < 0.010 - EKG Data -: EKG Interpreted by Hi EKG shows normal: sinus rhythm Rate: tachycardia (104 bpm) - EKG Data When compared to previous EKG there are: previous EKG unavailable Interpretation: other (No ischemic changes seen) - Radiology Data Radiology results: report reviewed (Chest x-ray), image reviewed (Chest x-ray) interpreted by me: Chest x-ray-no focal infiltrates, no pneumothorax, no foreign body Findings [facility] [address] [place] [address] XRay Report Signed Patient: KEV BARAJAS MR#: [id number] : 1975 Acct:[id number] Age/Sex: 44 / F ADM Date: 02/05/20 Loc: ED Attending Dr: Ordering Physician: ED MD TERE Date of Service: 02/05/20 Procedure(s): XR chest 1V ap Accession Number(s): [id number] cc: ED MD TERE Fluoro Time In Minutes: CHEST 1 VIEW 02/05/2020 9:28 PM INDICATION / CLINICAL INFORMATION: Chest Pain. COMPARISON: 01/27/2020 FINDINGS: SUPPORT DEVICES: None. HEART / MEDIASTINUM: No significant abnormality. LUNGS / PLEURA: No significant pulmonary or pleural abnormality. No pneumothorax. ADDITIONAL FINDINGS: No significant additional findings. IMPRESSION: 1. No acute findings. Signer Name: Ritchie Dale MD Signed: 02/05/2020 9:34 PM Workstation Name: [id number] Transcribed By: TL Dictated By: Ritchie Dale MD Electronically Authenticated By: Ritchie Dale MD Signed Date/Time: 02/05/202133 DD/ 33 TD/TT: - Differential Diagnosis ACS, pericarditis, GERD Critical care attestation.: If time is entered above; I have spent that time in minutes in the direct care of this critically ill patient, excluding procedure time. ED Disposition Clinical Impression: Chest pain Disposition: OP ADMIT IP TO THIS HOSP Is pt being admited?: Yes Does the pt Need Aspirin: Yes Condition: Fair Instructions: Chest Pain (ED) Referrals: PRIMARY CARE, [Primary Care Provider] - 3-5 Days Time of Disposition: 22:04 (Hospitalist notified (Dr Newell))
[2020-02-05 21:55] LABS: Blood Urea Nitrogen 21 mg/dL (7-17); Calcium 8.6 mg/dL (8.4-10.2); Hemolysis Index 14
[2020-02-05 21:57] LABS: BUN/Creatinine Ratio 30
[2020-02-05 23:22] VITALS: BP 122/67
== END 2020-02-05 23:06 | disposition left against medical advice (07) ==
LOC: ED 20:57 → 4A 22:03
PROVIDERS: ADMIT Internal Medicine; ATTEND Internal Medicine
DX: R07.89 Other chest pain (principal); I10 Essential (primary) hypertension; G43.909 Migraine, unspecified, not intractable, without status migrainosus; Z87.891 Personal history of nicotine dependence; Z79.899 Other long term (current) drug therapy
CPT/HCPCS: 36415; 71045; 80048; 84484; 85025; 93005; 99285; G0378